=== PATIENT | male | born 1990 | race Caucasian/White ===

== ENCOUNTER 2017-05-23 22:50 | Emergency (ER) | payer OTHER ==
[~2017-05-23] VITALS: Ht 177.8 cm; Wt 93.8 kg
[~2017-05-23 22:50] MED LIST: CEPH500 PO; HYDR-3580 PO; IBUP-1116 PO
[2017-05-23 23:05] VITALS: BP 132/74; PULSE 82; RESP 16; TEMP 98.1; O2SAT 99
[2017-05-24] MEDS ORDERED: SODIUM CHLORIDE 0.9% FLUSH 10 ML FLUSH IVF PRN (01:30)
[2017-05-24] MEDS ORDERED: cefTRIAXone 250 MG VIAL IM ONE (01:30)
[2017-05-24] MEDS ORDERED: LIDOCAINE HCL 1% 50 ML VIAL XX ONE (01:30)
[2017-05-24] MEDS ORDERED: AZITHROMYCIN PWD FOR SUSP 1 GM PACKET PO ONE (01:30)
[2017-05-24 01:51] LABS: BLOOD, URINE NEG (NEG); GLUCOSE,URINE NEG (NEG); KETONE, URINE NEG (NEG); NITRITE,URINE NEG (NEG)
[2017-05-24] MEDS ORDERED: ADDE20 PO (01:52)
[2017-05-24 01:57] LABS: URINE COLOR STRAW (YELLW/STRAW)
[2017-05-24 01:59] LABS: COMMENT (UR) CULT NOT INDICATED; CULTURE IF INDICATED CULT NOT INDICATED; SQUAMOUS EPITHELIAL CELL URINE 0-5 /hpf (0-5); WBC, URINE 0-2 /hpf (0-5)
[2017-05-24] MEDS ORDERED: DOXY100C PO (02:45)
--- NOTE | 2017-05-24 02:45 | PD ---
HPI Chief Complaint: Skin Problem Time Seen by Provider: 01:26 Travel History International Travel<30 days: No Contact w/Intl Traveler<30days: No Traveled to known affect area: No History of Present Illness HPI 26-year-old male presents to the emergency department for complaint of groin rash and burning with urination. Patient states that he works out of doors and is frequently hot and sweating and clothing becomes wet he continues to work in the outdoors where the groin area becomes wet and moist. Patient is sexually active with and without condom use. Patient is noted some burning with urination. Patient's had no fever chills nausea vomiting flank pain or hematuria. Patient's had no injury. Patient is not reporting any testicular pain or scrotal pain. Patient has noted erythematous rash with irritation in the groin area. No report of ulcerations. Patient reports clear discharge. No report of previous STI/STD. Currently pain is 0/10 in intensity. PFSH Past Medical History Narrative Medical ADHD prior clavicle fracture ankle fracture; tobacco use; nursing notes reviewed ADHD: Yes Cancer: No Cardiovascular Problems: No Diabetes: No Diminished Hearing: No Endocrine: No Genitourinary: No Hepatitis: No Hiatal Hernia: No Immune Disorder: No Musculoskeletal: Yes (FX LEFT CLAVICLE NOW - FX RIGHT CLAVICLE AGE 15; FX LEFT ANKLE 2012) Neurologic: No Psychiatric: No Reproductive: No Respiratory: No Thyroid Disease: No Tetanus Vaccination: Unknown Influenza Vaccination: No Past Surgical History AICD: No Body Medical Devices: LEFT ANKLE FX - INT FIX (PINS & PLATES) 2010 Joint Replacement: No Pacemaker: No Other Surgery: Yes (LEFT CLAVICLE ) Social History Alcohol Use: No Tobacco Use: Yes (/2 ppd) Substance Use: No Allergies-Medications (Allergen,Severity, Reaction): Coded Allergies: No Known Allergies (Unverified , 05/24/17) Reported Meds & Prescriptions Reported Meds & Active Scripts Active Doxycycline Hyclate 100 Mg Cap 100 Mg PO BID Reported Adderall (Amphetamine-Dextroamphetamine) 20 Mg Tab 20 Mg PO BID Avoid late evening doses. Space doses at least 4 to 6 hours if more than once/day dosing. Review of Systems Except as stated in HPI: all other systems reviewed are Neg General / Constitutional: No: Fever, Chills HENT: No: Congestion Cardiovascular: No: Chest Pain or Discomfort Respiratory: No: Shortness of Breath Gastrointestinal: No: Abdominal Pain Genitourinary: No: Hematuria, Decreased Urinary Output Musculoskeletal: No: Myalgias, Arthralgias Skin: Positive Rash Neurologic: No: Weakness Psychiatric: No: Anxiety Hematologic/Lymphatic: No: Easy Bruising Physical Exam Narrative GENERAL: Well-developed well-nourished male in no acute distress respiratory distress SKIN: Warm and dry. HEAD: Normocephalic. EYES: No scleral icterus. No injection or drainage. NECK: Supple, trachea midline. No JVD or lymphadenopathy. CARDIOVASCULAR: Regular rate and rhythm without murmurs, gallops, or rubs. RESPIRATORY: Breath sounds equal bilaterally. No accessory muscle use. GASTROINTESTINAL: Abdomen soft, non-tender, nondistended. : Circumcised male with erythematous few scant papular rash to groin area; penile erythema near the urethral meatus, no penile edema, scant clear penile discharge; bilaterally descended testicles; no scrotal edema MUSCULOSKELETAL: No cyanosis, or edema. BACK: Nontender without obvious deformity. No CVA tenderness. Data Data Last Documented VS Orders Orders Urinalysis - C+S If Indicated (05/24/17:26) Gc And Chlamydia Pcr (05/24/17:26) Azithromycin Powd Pack (Zithromax Powd P (05/24/17 01:30) Ceftriaxone Inj (Rocephin Inj) (05/24/17 01:30) Sodium Chloride 0.9% Flush (Ns Flush) (05/24/17 01:30) Lidocaine 1% Inj (50 Ml) (Xylocaine 1% I (05/24/17:30) Labs Laboratory Tests Test 05/24/17 01:30 Urine Color STRAW Urine Turbidity CLEAR Urine pH 6.0 Urine Specific [place] 1.005 Urine Protein NEG mg/dL Urine Glucose (UA) NEG mg/dL Urine Ketones NEG mg/dL Urine Occult Blood NEG Urine Nitrite NEG Urine Bilirubin NEG Urine Leukocyte Esterase NEG Urine WBC 0-2 /hpf Urine Squamous Epithelial Cells 0-5 /hpf Microscopic Urinalysis Comment CULT NOT INDICATED Chlamydia trachomatis DNA (PCR) NOT DETECTED Neisseria gonorrhoeae DNA (PCR) NOT DETECTED MDM Medical Decision Making Medical Screen Exam Complete: Yes Emergency Medical Condition: Yes Medical Record Reviewed: Yes Interpretation(s) Urinalysis: Values normal range Differential Diagnosis Contact dermatitis balanitis urethritis UTI STI folliculitis; no findings for phimosis or paraphimosis Narrative Course Patient with Diagnosis Primary Impression: Urethritis Additional Impression: Balanitis Referrals: Primary Care Physician call for appointment Patient Instructions: General Instructions Departure Forms: Tests/Procedures, Work Release Enter return to work date: May 25, 2017 Additional Instructions: May apply topical antibiotic such as Polysporin or Neosporin sparingly twice daily Keep site clean and dry Take antibiotic as prescribed Return to the emergency department for any concerns or change in condition Med/Other Pt SpecificInfo: Prescription(s) given Scripts Doxycycline Hyclate (Doxycycline Hyclate) 100 Mg Cap 100 MG PO BID for Infection, #14 CAP 0 Refills Prov: Yadi Pedro MD 05/24/17 Disposition: 01 DISCHARGE HOME Condition: Stable Yadi Pedro MD May 24, 2017 02:45
[2017-05-24 02:55] VITALS: BP 150/87; PULSE 90; RESP 16; O2SAT 99
[2017-05-24 12:58] LABS: CHLAMYDIA PCR NOT DETECTED (NOT DETECT); NEISSERIA PCR NOT DETECTED (NOT DETECT)
== END 2017-05-24 03:18 | disposition home or self-care (01) ==
LOC: PHED 22:50
DX: N34.2 Other urethritis (principal); N48.1 Balanitis
CPT/HCPCS: 81001; 87491; 87591; 96372; 99284; J0696